=== PATIENT | male | born 2000 | race Two or more races ===

== ENCOUNTER → 2023-05-20 | Outpatient (BNVA) | payer MEDICAID, SELFPAY | END | disposition home or self-care (01) | PROVIDERS: PCP Nurse Practitioner Family; Referring Provider Nurse Practitioner Family; Visit Provider Urology ==

== ENCOUNTER → 2024-08-17 | Outpatient (CLI) | payer MEDICAID, SELFPAY ==
--- NOTE | 2024-08-17 12:30 | XR_ITS ---
Examination: Retroperitoneal ultrasound, complete Technique: Multiple high resolution grayscale images of the retroperitoneum obtained, including kidneys and bladder. Exam date and time:August 17, 2024 1327 hrs. Indications: Diagnosis obstructive reflux uropathy, renal insufficiency Comparison April 12, 2022 Findings: Right kidney 7.4 cm cortex 1.3 cm Left kidney 12.6 cm cortex 2.2 cm No hydronephrosis No bladder mass Bladder prevoid volume 619 cc Prostate 3.4 x 2.5 x 4.5 cm no prostate nodules Impression: Atrophic right kidney No hydronephrosis
== END | disposition home or self-care (01) ==
LOC: CDIM 12:51
PROVIDERS: Referring Provider Urology; Visit Provider Urology
DX: N26.1 Atrophy of kidney (terminal) (principal)
CPT/HCPCS: 76770

== ENCOUNTER → 2024-10-23 | Outpatient (BNVA) | payer MEDICAID, SELFPAY | END | disposition home or self-care (01) | PROVIDERS: PCP Nurse Practitioner Family; Referring Provider Nurse Practitioner Family; Visit Provider Urology | DX: N31.9 Neuromuscular dysfunction of bladder, unspecified (principal); R33.9 Retention of urine, unspecified; N26.1 Atrophy of kidney (terminal); Q05.9 Spina bifida, unspecified; Z87.440 Personal history of urinary (tract) infections | CPT/HCPCS: 81003; 99212; G0463 ==